=== PATIENT | male | born 1970 | race African-American/Black ===

== ENCOUNTER 2017-11-14 16:27 | Outpatient (CLI) | payer BC | END 2017-11-14 16:28 | disposition home or self-care (01) | LOC: BICRAD 16:27 | PROVIDERS: ATTEND Family Medicine | DX: R91.1 Solitary pulmonary nodule (principal) | CPT/HCPCS: 71046 ==

== ENCOUNTER 2025-03-16 11:32 | Outpatient (CLI) | payer BC | END 2025-03-16 11:33 | disposition home or self-care (01) | LOC: ULT 11:32 | PROVIDERS: ATTEND Internal Medicine Nephrology | DX: N18.4 Chronic kidney disease, stage 4 (severe) (principal); N28.1 Cyst of kidney, acquired | CPT/HCPCS: 76770 ==